=== PATIENT | male | born 1945 | race Caucasian/White ===

== ENCOUNTER 2017-03-14 12:50 | Observation (INO) | payer MEDICARE, BC ==
[~2017-03-14] VITALS: Ht 182.9 cm; Wt 113.2 kg
--- NOTE | ~2017-03-14 | OP ---
PATIENT NAME: ANAMARIA LEVIN MEDICAL RECORD: [id number] :49 LOCATION:D.M2 D.2119 ADMISSION DATE:03/14/17 SURGEON: BRYCE NINA MD DATE OF OPERATION: 03/15/2017 PROCEDURES: Left heart catheterization, LV gram and coronary angiogram. DIESEL ENGINE MECHANIC: Bryce Nina MD. PROCEDURE IN DETAIL: The patient was brought to cardiac catheterization lab in stable condition. Both groins sterilely prepped and draped. After failing an Otilio's test, we decided to go through the right groin. Right groin then had lidocaine infused for topical anesthetic. We then entered into the right common femoral vein in a retrograde fashion using modified Seldinger technique. We then utilized diagnostic catheters to intubate the left main coronary artery, the right coronary artery and the LV cavity for complete left heart catheterization. We then exchanged the diagnostic catheters for interventional guiding catheters where I was able to intubate the left main coronary artery and get distal wire position with the 0.014 inch wire into the distal LAD. I was then able to advance directly with the stents a 2.5 x 22 drug-eluting stent into the mid to distal LAD segment and do direct stenting at 16 atmospheres. We then focused our attention on a more proximal lesion where after IV and intracoronary nitroglycerin was given, we advanced a 3.5 x 18 drug-eluting stent in multiple positions angiographically, verifying position. We deployed to nominal pressures and the procedure was terminated successfully. FINDINGS: 1. Left main has mild calcified plaquing. 2. The LAD is shown to have a proximal 70% stenosis and diffuse atherosclerotic intervening segment stenosis and then at the second sizable diagonal vessel, there was a complex 70% stenosis that was moderately calcified. 3. The circumflex is a dominant vessel by distribution, has diffuse atherosclerotic changes with the most significant stenosis seen in the distal portion calcified 50% stenosis. 4. The RCA is a small nondominant vessel with mild atherosclerotic changes. HEMODYNAMICS: Left ventricular ejection fraction is 65%, end-diastolic pressure was normal. There was no significant mitral regurgitation. There is no gradient across the aortic valve. INTERVENTION: We had segmental moderately complex calcified stenosis in the proximal to mid distal segment, which were successfully stented with drug-eluting stents in the mid segment and in the proximal segment without any sequelae. The patient was asymptomatic through the procedure except for mild chest discomfort after angiographic injection and then also after placement of the stents and that was rectified with little time and topical nitroglycerin. IMPRESSION: Multivessel coronary artery disease that is mild with a more severe segment stenosis in the LAD, both proximal and mid with preserved LV systolic function, it was decided for treatment modalities, we would go forward with angioplasty and stenting, which was successfully performed. Procedure was terminated successfully. The patient has normal left ventricular systolic function. RECOMMENDATIONS: OPERATIVE REPORT [id number] ANAMARIA LEVIN 1. At this point, he will go through dual antiplatelet therapy for at least 1 year in the form of aspirin and Plavix. 2. I would recommend that we maximize the patient's lipid modification primarily utilizing statins as clinically tolerated with the goal for optimal use of less than 70 mg per deciliter. 3. Aggressive secondary risk factor modification form of a DASH diet for control of dietary intake of sodium and trans fats. 4. If clinically tolerated in a patient with coronary artery disease, it is usually recommended to be least on low dose beta-tamia in the form of possible metoprolol. 5. If clinically tolerated, it is generally accepted that the patient should be on a low dose at least CALE inhibitor in the form of possible lisinopril, maybe 2.5 mg p.o. daily. TRANSINT:[id number] Voice Confirmation ID: [id number] DOCUMENT ID: [id number] BRYCE NINA MD CC: [id number] DICTATION DATE: 03/15/17 0953 RETAIL MERCHANDISING MANAGER: 03/15/17 1254 ADM IN [facility] [address] [place] [address]
--- NOTE | ~2017-03-14 | EC ---
PATIENT:ANAMARIA LEVIN DATE OF SERVICE: 03/14/17 SEX: M MEDICAL RECORD: [id number] DATE OF : 49 LOCATION:D.M2 D.211 AGE OF PATIENT: 71 ADMISSION DATE: 03/14/17 REFERRING PHYSICIAN: INTERPRETING PHYSICIAN: JACK NINA MD ECHOCARDIOGRAM REPORT ECHO CHARGES 4 ECHO COMPLETE CLINICAL DIAGNOSIS: CP/DUARTE ECHOCARDIOGRAPHIC MEASUREMENTS (adult normal given) AC root (d.<3.7cm) 3.3 cm LV Septum d (<1.2 cm> 1.8 cm Valve Excursion 1.9 cm LV Septum (systole) 2.1 cm Left Atria (s.<4.0cm> 3.6 cm LVPW d(<1.2cm) 1.6 cm RV (d.<2.3cm) 2.8 cm LVPW (sytole) 2.1 cm LV diastole(<5.6CM) 4.9 cm MV E-F(>70mm/sec) cm LV systole 3.1 cm LVOT Diameter 2.0 cm MV exc.(>10mm) cm Est.ejection fraction (50-75%) % Pericardial Effusion N DOPPLER: LVIT cm/sec A 87.0 cm/sec E 66.0 cm/sec LA cm/sec RVSP 32.0 mmHg LVOT 97.0 cm/sec AOP1/2T m/s Asc. Ao 120 cm/sec RVOT 74.0 cm/sec RA cm/sec PA 131 cm/sec AV Gradient Peak 5.7 mmHg AV Mean 2.8 mmHg AV Area 2.4 cm MV Gradient Peak 3.3 mmHg MV Mean 1.1 mmHg MV Area cm COMMENTS: Business Objects Developer: Rose Marie TAYLOROE Car Bracer: Rianna Nina TAPE# PACS DATE OF SERVICE: 03/15/2017 PROCEDURE: Echocardiogram. FINDINGS: 1. The left ventricle has mild concentric left ventricular hypertrophy and flow characteristics consistent with diastolic dysfunction. The overall ejection fraction is 65%. There is no regional wall motion abnormality. 2. The mitral valve is normal structurally with minimal mitral regurgitation. 3. The tricuspid valve is normal with minimal tricuspid regurgitation. The ECHOCARDIOGRAM REPORT [id number] ANAMARIA LEVIN RVSP is normal. 4. The aortic valve is normal trileaflet structure with no evidence of significant stenosis or regurgitation. 5. The right atrium has normal size, shape and structure. 6. The left atrium has normal size, shape and structure. 7. The pulmonic valve is not well visualized. There is trace pulmonic insufficiency. 8. The pericardium is normal. CONCLUSION: The patient has mild hypertensive heart disease with normal LV systolic function. TRANSINT:[id number] Voice Confirmation ID: [id number] DOCUMENT ID: [id number] JACK NINA MD CC: [id number] DICTATION DATE: 03/15/17 1633 COATER: 03/15/17 1830 ADM IN [facility] [address] [place] [address]
--- NOTE | ~2017-03-14 | HEMODYNAMI ---
PATIENT:ANAMARIA LEVIN MEDICAL RECORD: [id number] : 49 LOCATION:[facility] D.2119 ADMISSION DATE: 03/14/17 Generatedon:03/15/201710:05 Patient name: ANAMARIA LEVIN Patient #: [id number] SSN: : 1945 Date of study: 03/15/2017 Page: Of Hemodynamic Procedure Report Patient Data Patient Demographics Procedure consent was obtained First Name: ANAMARIA Gender: Male Last Name: OLLIE : 1945 Patient #: [id number] Age: 71 year(s) Race: Unknown Additional ID: [id number] Contact details Address: [address] [place] [address] State: [place] City: [place] Zip code: [address] Admission Admission Data Admission Date: 03/14/2017 Admission Time: 15:42 Room #: D.2119 Procedure Procedure Types Cath Procedure Diagnostic Procedure LHC LH w/Coronaries PCI Procedure Coronary Stent Initial Miscellaneous Procedures Moderate Sedation up to 45 minutes Procedure Description Procedure Date Procedure Date: 03/15/2017 Procedure Start Time: 8:59 Procedure End Time: 10:04 Procedure Staff Name Function Bryce Moreno MD Performing Physician Radha Solorzano RN Nurse Jhonny Angel RT Monitor Peggy Persaud RT Scrub Procedure Data Cath Procedure Fluoroscopy Diagnostic fluoroscopy Total fluoroscopy Time: time: 11.3 min 11.3 min Diagnostic fluoroscopy Total fluoroscopy dose: dose: 1824 mGy 1824 mGy Contrast Material Contrast Material Type Amount (ml) Isovue 300 152 Entry Location Entry Primary Successful Side Size Upsize Upsize Entry Closure Succes sful Closure Location (Fr) 1 (Fr) 2 (Fr) Remarks Device Remarks Femoral Right 5 Fr 6 Fr Exoseal artery Short Estimated blood loss: 10 ml Diagnostic catheters Device Type Used For End Catheter Placement Cordis 5Fr JL 4.0 Procedure Catheter (MP) Cordis 5Fr 3DRC Catheter Procedure (MP) Cordis 5Fr Pigtail Procedure Catheter (MP) Procedure Complications No complications Procedure Medications Medication Administration Route Dosage Oxygen NC 2 l/min Lidocaine 2% added to field 20 Heparin Flush Bag added to field 2 bags (1000units/500ml NS) 0.9% NaCl I.V. 100 ml/hr Versed I.V. 2 mg Fentanyl I.V. 50 mcg Angiomax (bolus) I.V. 12 ml Angiomax Drip I.V. drip 27.3 ml/hr (250mg/50ml NS) (Standard) Nitroglycerin IC/IA I.C. 300 mcg Versed I.V. 1 mg Fentanyl I.V. 25 mcg Angiomax Drip 27.3 ml/hr (250mg/50ml NS) (Standard) Fentanyl I.V. 25 mcg unlisted medication 1 Plavix P.O. 300 mg Hemodynamics Rest Heart Rate: 65 (bpm) Pressure Samples Time Site Value (mmHg) Purpose Heart Use Rate(bpm) 9:04 AO 138/84(108) Snapshot 61 9:11 LV 153/-3,19 EDP 66 Gradients Valve Time Site Site Mean SEP/DFP Peak To Heart Use 1 2 (mmHg) (sec/min) Peak Rate (mmHg) (bpm) Aortic 9:12 LV AO 63 Snapshots Pre Cath Intra NCS Post Cath Vital Signs Time Heart Resp SPO2 etCO2 AV1ddpu NIBP (mmHg) Rhythm Pain Sedatio n Rate (ipm) (%) (mmHg) (mmHg) Status Level (bpm) 8:47:41 60 17 97 0 0 164/95(144) NSR 0 (11) 10(A) , No pain 8:52:07 66 17 98 0 0 167/87(134) NSR 0 (11) 10(A) , No pain 8:56:27 66 15 96 0 0 154/95(131) NSR 0 (11) 10(A) , No pain 9:00:49 64 16 95 0 0 147/88(126) NSR 0 (11) 9(A) , No pain 9:05:09 64 15 95 0 0 141/86(112) NSR 0 (11) 9(A) , No pain 9:09:26 65 15 94 0 0 141/86(123) NSR 0 (11) 9(A) , No pain 9:13:42 65 14 93 0 0 132/90(113) NSR 0 (11) 9(A) , No pain 9:17:55 62 16 94 0 0 143/89(105) NSR 0 (11) 9(A) , No pain 9:22:14 63 14 94 0 0 140/84(114) NSR 0 (11) 10(A) , No pain 9:26:32 66 15 94 0 0 133/85(101) NSR 0 (11) 10(A) , No pain 9:30:48 57 15 92 0 0 132/79(97) NSR 0 (11) 10(A) , No pain 9:35:02 61 15 93 0 0 149/89(115) NSR 0 (11) 10(A) , No pain 9:39:22 60 15 93 0 0 146/87(125) NSR 0 (11) 10(A) , No pain 9:43:40 59 18 94 0 0 156/94(125) NSR 0 (11) 10(A) , No pain 9:48:00 60 18 94 0 0 151/97(132) NSR 0 (11) 10(A) , No pain 9:52:18 62 16 95 0 0 168/98(143) NSR 0 (11) 10(A) , No pain 9:56:40 61 19 95 0 0 167/100(139) NSR 0 (11) 10(A) , No pain 10:00:40 0 0 No Cuff NSR 0 (11) 10(A) , No pain 10:04:40 0 0 No Cuff NSR 0 (11) 10(A) , No pain Medications Time Medication Route Dose Verified Delivered Reason N otes Effectiveness by by 8:47:06 Heparin Flush added to 2 Bryce Bryce used for Bag field bags Josh Moreno MD procedure (1000units/500ml NS) 8:47:16 0.9% NaCl I.V. 100 Bryce Buffie Per physician ml/hr Josh Solorzano RN, MD 8:47:52 Oxygen NC 2 Bryce Buffie used for l/min Josh Solorzano RN procedure 8:47:59 Lidocaine 2% added to 20ml Bryce Bryce for local field vial Josh Moreno MD anesthetic 8:57:23 Versed I.V. 2 mg Bryce Buffie for sedation Josh Solorzano RN, MD 8:57:29 Fentanyl I.V. 50 Bryce Buffie for sedation mcg Josh Solorzano RN, MD 9:21:27 Angiomax (bolus) I.V. 12 ml Bryce Buffie for Josh Solorzano RN anticoagulation 9:22:09 Angiomax Drip I.V. drip 27.3 Bryce Buffie for (250mg/50ml NS) ml/hr Josh Solorzano RN anticoagulation (Standard) 9:25:21 Nitroglycerin I.C. 300 Bryce Bryce Per physician IC/IA mcg Josh Moreno MD, MD 9:37:05 Versed I.V. 1 mg Bryce Bryce for sedation Josh Moreno MD, MD 9:37:10 Fentanyl I.V. 25 Bryce Bryce for sedation mcg Josh Moreno MD, MD 9:41:32 Angiomax Drip I.V. 27.3 Bryce Bryce for (250mg/50ml NS) drip-stopped ml/hr Josh Moreno MD anticoagulation (Standard) 9:45:29 Fentanyl I.V. 25 Bryce Buffie for sedation mcg Josh Solorzano RN, MD 9:56:36 Nitroglycerin to chest 1/2 Bryce Buffie for chest pain paste inch Josh Solorzano RN, MD 9:56:44 Plavix P.O. 300 Bryce Buffie for mg Josh Solorzano RN antiplatelet therapy Procedure Log Time Note 8:23:43 Jhonny BOONE(R) sent for patient. Start room use. 8:23:44 Time tracking: Regular hours 8:23:49 Plan of Care:Hemodynamics will remain stable., Cardiac rhythm will remain stable., Comfort level will be maintained., Respiratory function will remain adequate., Patient/ family verbilizes understanding of procedure., Procedure tolerated without complication., Recovers from procedure without complications.. 8:38:29 Patient received from PCU to CCL 1 Alert and oriented. Tansferred to table in Supine position. 8:38:30 Correct patient and procedure confirmed by team. 8:38:30 Warm blankets applied, and jasmina hugger turned on for patient comfort. 8:38:32 ECG and BP/O2 sat monitors applied to patient. 8:38:32 Signed procedure consent form obtained from patient. 8:46:26 Vital chart was started 8:47:06 Heparin Flush Bag (1000units/500ml NS) 2 bags added to field was administered by Bryce Moreno MD; used for procedure; 8:47:16 0.9% NaCl 100 ml/hr I.V. was administered by Radha Solorzano RN; Per physician; 8:47:52 Oxygen 2 l/min NC was administered by Radha Solorzano RN; used for procedure; 8:47:59 Lidocaine 2% 20ml vial added to field was administered by Bryce Moreno MD; for local anesthetic; 8:53:56 Baseline sample Acquired. 8:54:01 Rhythm: sinus rhythm 8:54:02 Full Disclosure recording started 8:54:08 H&P Date Dictated: 03/14/2017 Within 30 days and on chart., H&P Addendum completed by physician on day of procedure. (MUST COMPLETE FOR ALL OUTPATIENTS). 8:54:09 Pre-procedure instructions explained to patient. 8:54:09 Pre-op teaching completed and patient verbalized understanding. 8:54:12 Family in patients room. 8:54:13 Patient NPO since Midnight. 8:54:15 Is the patient allergic to Iodine/contrast media? No. 8:54:17 Is patient on blood thinner?Yes 8:54:20 ACC The patient was administered the following blood thiners within the last 24 hours: ACCPlavix 8:54:21 Patient diabetic? No. 8:54:23 Previous problem with sedation/anesthesia? No ? 8:54:24 Snore? Yes 8:54:26 Sleep apnea? No 8:54:27 Deviated septum? No 8:54:28 Opens mouth fully? Yes 8:54:29 Sticks out tongue? Yes 8:54:30 Airway obstruction? No ? 8:54:32 Dentures? No ? 8:54:35 Pre procedure: right dorsailis pedis pulse 1+ Palpable, but thready & weak; easily obliterated 8:54:38 Modified Otilio's test Ulnar > 7 seconds. 8:54:53 FAILED OTILIO'S 8:54:56 Patient pain scale 0/10 ?. 8:55:02 IV patent on arrival in right hand with 0.9% NaCl at [facility]. 8:55:04 Lab results completed and on chart. 8:55:06 Right groin area was prepped with chlora-prep and draped in sterile fashion 8:55:08 Sharps counted by scrub and verified by R.N. 8:55:08 Alarms reviewed by R. N. 8:55:09 --------ALL STOP TIME OUT------ 8:55:10 Final Timeout: patient, procedure, and site verified with staff and physician. All members of the team are in agreement. 8:55:13 Right groin site verified by team. 8:55:15 Physical assessment completed. ASA score P 2 - A patient with mild systemic disease as per Bryce Moreno MD. 8:55:18 Sedation plan: IV Moderate Sedation Versed, Fentanyl 8:55:37 Zero performed for pressure channel P1 8:56:50 Use device set Femoral Dx 8:56:52 Tegaderm 4 x 4 opened to sterile field. 8:56:53 Acist Hand Control opened to sterile field. 8:56:53 Acist Manifold opened to sterile field. 8:56:54 Acist Syringe opened to sterile field. 8:56:55 Bag Decanter opened to sterile field. 8:56:55 Medline Cath Pack opened to sterile field. 8:56:56 Terumo 5Fr [place] Sheath opened to sterile field. 8:56:56 St Neeraj 260cm J .035 wire opened to sterile field. 8:56:58 Diagnostic Infinity 5Fr Multipack catheter opened to sterile field. 8:57:12 Cook 4Fr Micropuncture Set ([id number]) opened to sterile field. 8:57:23 Versed 2 mg I.V. was administered by Radha Solorzano RN; for sedation; 8:57:29 Fentanyl 50 mcg I.V. was administered by Radha Solorzano RN; for sedation; 8:58:19 IV Extension Set opened to sterile field. 8:58:57 Procedure started. 8:59:01 Local anesthetic to right femoral artery with Lidocaine 2% by Bryce Moreno MD.INITIAL ACCESS ONLY 9:01:47 A 5 Fr sheath was inserted into the Right Femoral artery 9:03:41 A Cordis 5Fr JL 4.0 Catheter (MP) was advanced over the wire and used for Procedure. 9:04:25 LCA angiography performed. 9:07:40 Catheter exchanged over wire. 9:07:45 A Cordis 5Fr 3DRC Catheter (MP) was advanced over the wire and used for Procedure. 9:08:42 RCA angiography performed. 9:09:06 Catheter exchanged over wire. 9:10:27 A Cordis 5Fr Pigtail Catheter (MP) was advanced over the wire and used for Procedure. 9:11:40 LV angiography performed. 9:11:44 LV gram done using SHAH 9:12:53 EF : 60 % 9:12:55 LV hemodynamics recorded. 9:12:59 Injector settings: Ml/sec: 12, Volume: 8, 9:13:02 Catheter removed. 9:15:07 Presentigo BasixCompak Inflation Kit opened to sterile field. 9:15:09 TerumAeryon Labs 6Fr [place]well Sheath opened to sterile field. 9:15:10 Copilot Bleedback Control Valve opened to sterile field. 9:15:10 Resistentia PharmaceuticalsW [place] 2 J-tip 300cm 0.014 guide wir opened to sterile field. 9:15:12 TapImmune Launcher 6Fr EBU 4.5 guide catheter opened to sterile field. 9:15:47 Sheath upsized to a 6 Fr Short. 9:16:13 Study PCI Site: [place] mLAD has 70% stenosis. 9:17:36 ACC Pre-intervention EUN Flow is 3. 9:17:46 6 Fr EBU 4.5 guide catheter was inserted over the wire 9:21:27 Angiomax (bolus) 12 ml I.V. was administered by Radha Solorzano RN; for anticoagulation; 9:21:36 BMW wire advanced. 9:22:09 Angiomax Drip (250mg/50ml NS) (Standard) 27.3 ml/hr I.V. drip was administered by Radha Solorzano RN; for anticoagulation; 9:23:52 Wire advanced across lesion. 9:25:21 Nitroglycerin IC/IA 300 mcg I.C. was administered by Bryce Moreno MD; Per physician; 9:31:29 Inflation Number: 1 A [place] OTW 2.5 x 22 stent was prepped and advanced across the Mid LAD. The stent was deployed at 16 [place] for 0:10 (min:sec). 9:33:15 Stent catheter was removed intact over wire. 9:37:05 Versed 1 mg I.V. was administered by Bryce Moreno MD; for sedation; 9:37:10 Fentanyl 25 mcg I.V. was administered by Bryce Moreno MD; for sedation; 9:38:22 Inflation Number: 1 A [place] OTW 3.5 x 18 stent was prepped and advanced across the Prox LAD. The stent was deployed at 12 [place] for 0:10 (min:sec). 9:39:20 Stent catheter was removed intact over wire. 9:41:32 Angiomax Drip (250mg/50ml NS) (Standard) 27.3 ml/hr I.V. drip-stopped was administered by Bryce Moreno MD; for anticoagulation; 9:41:40 Wire removed. 9:42:08 Guide catheter removed. 9:42:11 ACC Post-intervention EUN Flow is 3. 9:42:46 Cordis 6Fr Exoseal opened to sterile field. 9:43:01 Sheath removed intact; hemostasis achieved with Exoseal to the Right Femoral artery. 9:43:05 Procedure ended.(Physican Out) 9:43:29 Fluoroscopy time 11.30 minutes. 9:43:34 Flurop Dose total: 1824 9:43:34 Fluoroscopy dose: 1824 mGy 9:43:38 Contrast amount:Isovue 300 152ml. 9:43:40 Sharps counted by scrub and verified by R.N. 9:43:43 Insertion/operative site no bleeding no hematoma. 9:43:45 Post-op/insertion site Right Femoral artery dressed using a 4 x 4 and Tegaderm. 9:43:47 Post Procedure Pulses reassessed and unchanged 9:43:50 Post-procedure physical assessment completed. ASA score P 2 - A patient with mild systemic disease as per Bryce Moreno MD. 9:44:56 Post procedure rhythm: unchanged. 9:44:58 Estimated blood loss: 10 ml 9:45:00 Post procedure instruction explained to patient.Patient verbalizes understanding. 9:45:01 Patient needs reinforcement of post procedure teaching. 9:45:11 Procedure type changed to Cath procedure, Diagnostic procedure, LHC, LHC w/Coronaries, PCI procedure, Coronary Stent Initial, Miscellaneous Procedures, Moderate Sedation up to 45 minutes 9:45:14 Procedure Complication : No complications 9:45:29 Fentanyl 25 mcg I.V. was administered by Radha Solorzano RN; for sedation; 9:47:24 Procedure and supply charges have been captured, reviewed, submitted and are correct. 9:56:36 Nitroglycerin paste 1/2 inch to chest was administered by Radha Solorzano RN; for chest pain; 9:56:44 Plavix 300 mg P.O. was administered by Radha Solorzano RN; for antiplatelet therapy; 10:04:25 Vital chart was stopped 10:04:26 See physician's report for complete and final results. 10:04:29 Report given to PCU. 10:04:36 Patient transfered to PCU with Bed. 10:04:38 Procedure ended. 10:04:38 Full Disclosure recording stopped 10:04:53 End room use (Document Last) Intervention Summary Intervention Notes Time ActionType Lesion and Equipment Action# Pressure Duration Attributes Used 9:31:29 Place stent Mid LAD [place] OTW 1 16 00:10 2.5 x 22 stent 9:38:22 Place stent Prox LAD [place] OTW 1 12 00:10 3.5 x 18 stent Device Usage Item Name Manufacture Quantity Catalog Hospital Part Current Mini mal Lot# / Number Charge Number Stock Stock Serial# Code Tegaderm 4 x 3M 1 1626W [id number] 779756 177584 5 4 Acist Hand Acist 1 15502 737817 637947 228924 5 Control Medical Systems Inc Acist Acist 1 96751 471385 079206 209993 5 Manifold Medical Systems Inc Acist Syringe Acist 1 47820 083264 514747 011103 20 Medical Systems Inc Bag Decanter Microtek 1 2002S 260791 38347 476406 5 Medical Inc. Medline Cath Cardinal 1 [id number] 328344 47509 902775 5 Pack Health Terumo 5Fr Terumo 1 [id number] 487632 440188 349770 [address] Neeraj 1 304166 561318 690226 667664 30 J .035 wire Diagnostic Cardinal 1 [id number] 831494 45772 418033 30 Infinity 5Fr Health Multipack catheter Cook 4Fr [employer] 1 [id number] 745494 359925 994503 5 Micropuncture Set ([id number]) IV Extension Hospira 1 34453-74 1928588 43098 664639 5 Set Cordis 5Fr JL Cardinal 1 202148 5 4.0 Catheter Health (MP) Cordis 5Fr Cardinal 1 179260 5 3DRC Catheter Health (MP) Cordis 5Fr Cardinal 1 938140 5 Pigtail Health Catheter (MP) [facility] 1 [id number] 820856 490485 703775 15 BasixCompak Medical Inflation Kit Terumo 6Fr Terumo 1 [id number] 012248 128477 612965 40 Norwell Sheath Copilot [place] 1 1647368 715015 747811 392621 5 Bleedback Vascular Control Valve Hooper BMW Hooper 1 [id number] 715973 469794 317858 5 [place] 2 Vascular J-tip 300cm 0.014 guide wir Medtronic Medtronic 1 [id number] 022533 97421 267199 0 Launcher 6Fr EBU 4.5 guide catheter [place] OTW 2.5 Medtronic 1 [id number] 230814 23903 847369 5 [id number] x 22 stent [place] OTW 3.5 Medtronic 1 [id number] 543890 8686641 164060 5 [id number] x 18 stent Cordis 6Fr Cardinal 1 [id number] 083716 350578 187962 10 [facility] Ecorithm Signature Audit [place] Stage Time Signature Unsigned Intra-Procedure 03/15/2017 Jhonny Angel 10:05:08 AM RT(R) Signatures Monitor : Jhonny Angel RT Signature : Date : Time : [address] [place] [address]
[2017-03-14 13:32] LABS: BASOPHILS 0.9 % (0-2); EOSINOPHILS 3.4 % (0-7); HEMATOCRIT 44.8 % (42.0-54.0); HEMOGLOBIN 15.8 g/dL (13.5-17.5); IMMATURE GRANULOCYTES 0.2 % (0-5); LYMPHOCYTES 39.3 % (15-50); MCH 30.3 pg (26.0-34.0); MCHC 35.3 g/dL (31.0-37.0); MEAN PLATELET VOLUME 10.6 fL (7.4-10.4); MONOCYTES 9.8 % (2-11); NEUTROPHILS 46.4 % (40-80); PLATELET COUNT 186 10x3/uL (130-400); RBC 5.21 10x6/uL (4.20-6.10); RDW 12.7 % (11.5-14.5); WBC 4.4 10x3/uL (4.8-10.8)
[2017-03-14 13:46] LABS: ALBUMIN 3.6 g/dL (3.4-5.0); ALKALINE PHOSPHATASE 60 U/L (46-116); ALT (SGPT) 45 U/L (10-68); BILIRUBIN - TOTAL 0.33 mg/dL (0.2-1.3); CALC OSMOLALITY 277 mosm/kg (275-300); CALCIUM 8.1 mg/dL (8.5-10.1); CARBON DIOXIDE 24.4 mmol/L (21.0-32.0); CHLORIDE - SERUM 105 mmol/L (98-107); CREATININE - SERUM 0.8 mg/dL (0.6-1.3); GLUCOSE 101 mg/dL (74-106); POTASSIUM - SERUM 3.9 mmol/L (3.5-5.1); PROTEIN - SERUM 7.4 g/dL (6.4-8.2); SODIUM 138 mmol/L (136-145); UREA NITROGEN 17 mg/dL (7-18); eGFR NON AFRICAN AMERICAN > 90 mL/min (90-120)
[2017-03-14 14:01] LABS: CHOL - HDL RATIO 6.6 ratio (2.3-4.9); CHOLESTEROL, TOTAL 185 mg/dL (0-200); CKMB 1.8 U/L (0.0-3.6); CREATINE KINASE 249 UL (21-232); HDL CHOLESTEROL 28 mg/dL (32-96); LDL CHOLESTEROL 120 mg/dL (0-100); LDL-HDL RATIO 4.3 ratio (1.5-3.5); TRIGLYCERIDE 187 mg/dL (30-200); TROPONIN-I < 0.017 ng/mL (0.000-0.060)
[2017-03-14 17:33] VITALS: BP 134/68; Ht 182.9 cm; Wt 113.2 kg
--- NOTE | 2017-03-14 17:44 | NUR ---
RECIVED FROM ER PER WC TO ROOM 2119. RN FOR ADMIT ASSESSMENT. AT SIDE.
[2017-03-14 20:00] VITALS: BP 150/104
[2017-03-14 20:16] VITALS: BP 133/79
[2017-03-15 03:46] LABS: BASOPHILS 0.8 % (0-2); EOSINOPHILS 3.7 % (0-7); HEMATOCRIT 44.2 % (42.0-54.0); HEMOGLOBIN 15.4 g/dL (13.5-17.5); IMMATURE GRANULOCYTES 0.2 % (0-5); LYMPHOCYTES 42.3 % (15-50); MCH 30.3 pg (26.0-34.0); MCHC 34.8 g/dL (31.0-37.0); MONOCYTES 9.6 % (2-11); NEUTROPHILS 43.4 % (40-80); PLATELET COUNT 185 10x3/uL (130-400); RBC 5.08 10x6/uL (4.20-6.10); RDW 12.7 % (11.5-14.5); WBC 4.9 10x3/uL (4.8-10.8)
[2017-03-15 04:00] VITALS: BP 135/73
[2017-03-15 04:10] LABS: CALC OSMOLALITY 277 mosm/kg (275-300); CARBON DIOXIDE 29.5 mmol/L (21.0-32.0); CHLORIDE - SERUM 105 mmol/L (98-107); GLUCOSE 104 mg/dL (74-106); POTASSIUM - SERUM 3.9 mmol/L (3.5-5.1); SODIUM 138 mmol/L (136-145); UREA NITROGEN 17 mg/dL (7-18)
[2017-03-15 04:12] LABS: CREATININE - SERUM 1.1 mg/dL (0.6-1.3); TROPONIN-I < 0.017 ng/mL (0.000-0.060); eGFR NON AFRICAN AMERICAN 70 mL/min (90-120)
[2017-03-15 04:55] VITALS: BP 129/82
[2017-03-15 08:00] VITALS: BP 150/92
--- NOTE | 2017-03-15 08:33 | NUR ---
PRE-OPS GIVEN. LEAVING FOR INTERACTIVE MEDIA DIRECTOR BY BED.
--- NOTE | 2017-03-15 10:26 | NUR ---
BACK FROM DIGITAL MARKETING CONSULTANT. VS WNL. RIGHT GROIN STABLE WITHOUT BLEEDING OR HEMATOMA NOTED. WILL MONITOR.
[2017-03-15 11:46] VITALS: BP 164/97
--- NOTE | 2017-03-15 13:50 | NUR ---
BED REST UP. RIGHT GROIN STABLE.
[2017-03-15 15:23] VITALS: BP 107/70
--- NOTE | 2017-03-15 19:59 | NUR ---
RESUMED CARE OF PT, LYING IN BED RESPIRATIONS EVEN AND UNLABORED ON 2LPM VIA NC. 62 SR ON TELEMETRY. RIGHT HAND SALINE LOCKED. NO NEEDS AT THIS TIME, WILL CONTINUE TO MONITOR. SEE NURSE ASSESSMENT.
[2017-03-15 20:02] VITALS: BP 121/79
[2017-03-16 00:35] VITALS: BP 108/65
[2017-03-16 05:38] VITALS: BP 156/84
[2017-03-16 05:48] LABS: BASOPHILS 0.3 % (0-2); EOSINOPHILS 1.4 % (0-7); HEMATOCRIT 44.6 % (42.0-54.0); HEMOGLOBIN 15.4 g/dL (13.5-17.5); IMMATURE GRANULOCYTES 0.3 % (0-5); LYMPHOCYTES 20.8 % (15-50); MCH 30.1 pg (26.0-34.0); MCHC 34.5 g/dL (31.0-37.0); MCV 87.1 fL (80.0-100.0); MEAN PLATELET VOLUME 10.9 fL (7.4-10.4); NEUTROPHILS 66.2 % (40-80); PLATELET COUNT 191 10x3/uL (130-400); RBC 5.12 10x6/uL (4.20-6.10); RDW 12.8 % (11.5-14.5)
[2017-03-16 05:56] LABS: WBC 7.7 10x3/uL (4.8-10.8)
[2017-03-16 06:10] LABS: CALC OSMOLALITY 276 mosm/kg (275-300); CALCIUM 7.8 mg/dL (8.5-10.1); CARBON DIOXIDE 25.8 mmol/L (21.0-32.0); CHLORIDE - SERUM 103 mmol/L (98-107); GLUCOSE 117 mg/dL (74-106); POTASSIUM - SERUM 3.7 mmol/L (3.5-5.1); SODIUM 137 mmol/L (136-145); UREA NITROGEN 17 mg/dL (7-18); eGFR NON AFRICAN AMERICAN 79 mL/min (90-120)
--- NOTE | 2017-03-16 07:30 | NUR ---
RECEIVED PT IN BED AAOX4 PLEASANT MOOD RESP UNLABORED DENIES ANY NEEDS OR DISCOMFORT AT THIS TIME NAD NOTED WILL CONTINUE TO MONITOR
[2017-03-16 08:23] VITALS: BP 115/69
[2017-03-16] MEDS ORDERED: LIPITOR20 MG PO ×2 (11:02→11:48)
[2017-03-16] MEDS ORDERED: ASPIRIN325 MG PO (11:02)
[2017-03-16] MEDS ORDERED: LISINOPRIL5 MG PO (11:02)
[2017-03-16] MEDS ORDERED: LOPRESSOR25 MG PO (11:02)
[2017-03-16 11:36] VITALS: BP 130/76
[2017-03-16] MEDS ORDERED: PLAVIX75 MG PO (11:48)
--- NOTE | 2017-03-16 14:25 | NUR ---
REVIEWED DISCHARGE INSTRUCTIONS WITH PT AND BOTH STATE UNDERSTANDING COPY GIVEN DCD SALINE LOCK TO RT HAND WITH 18 GA IV CATHETER INTACT SITE FREE OF REDNESS OR EDEMA DISCHARGED PT HOME LEFT UNIT VIA W/C IN STABLE CONDITION WITH ALL PERSONAL BELONGINGS
== END 2017-03-16 14:25 | disposition home or self-care (01) ==
LOC: D.ER 12:50 → D.M2 15:42 → OBSVTIME 15:42 → D.M2 15:42
PROVIDERS: Emergency Medicine; ADMIT Emergency Medicine
DX: I25.119 Atherosclerotic heart disease of native coronary artery with unspecified angina pectoris (principal); Z87.891 Personal history of nicotine dependence
CPT/HCPCS: 93458; C9600

== ENCOUNTER → 2018-02-05 17:46 | Outpatient (CLI) | payer MEDICARE, BC ==
[2017-03-14 17:33] VITALS: BMI 34.2
[~2018-02-05 17:46] MED LIST: ASPIRIN325 MG PO; BAYER CHEWABLE81 MG PO; LIPITOR20 MG PO; LISINOPRIL5 MG PO; LOPRESSOR25 MG PO; PLAVIX75 MG PO
[2018-02-05 18:21] LABS: BASOPHILS 0.7 % (0-2); EOSINOPHILS 2.9 % (0-7); HEMATOCRIT 44.5 % (42.0-54.0); HEMOGLOBIN 15.3 g/dL (13.5-17.5); IMMATURE GRANULOCYTES 0.2 % (0-5); MCH 30.2 pg (26.0-34.0); MCHC 34.4 g/dL (31.0-37.0); MCV 87.9 fL (80.0-100.0); MEAN PLATELET VOLUME 11.9 fL (7.4-10.4); MONOCYTES 10.4 % (2-11); NEUTROPHILS 53.8 % (40-80); PLATELET COUNT 189 10x3/uL (130-400); RBC 5.06 10x6/uL (4.20-6.10); RDW 12.7 % (11.5-14.5); WBC 5.8 10x3/uL (4.8-10.8)
== END | disposition home or self-care (01) ==
LOC: D.LABREF 17:46
PROVIDERS: Internal Medicine Cardiovascular Disease
DX: I10 Essential (primary) hypertension (principal)

== ENCOUNTER → 2018-02-08 12:45 | Outpatient (CLI) | payer MEDICARE, BC ==
[2017-03-14 17:33] VITALS: BMI 34.2
--- NOTE | ~2018-02-08 | EC ---
PATIENT:ANAMARIA LEVIN DATE OF SERVICE: 02/08/18 SEX: M MEDICAL RECORD: [id number] DATE OF : 49 LOCATION:D.[facility] AGE OF PATIENT: 72 ADMISSION DATE: 02/08/18 REFERRING PHYSICIAN: INTERPRETING PHYSICIAN: JACK NINA MD ECHOCARDIOGRAM REPORT ECHO CHARGES 4 ECHO COMPLETE Date: 02/08 CLINICAL DIAGNOSIS: CAD, CP, HTN, SYNCOPE ECHOCARDIOGRAPHIC MEASUREMENTS (adult normal given) AC root (d.<3.7cm) 3.8 cm LV Septum d (<1.2 cm> 1.3 cm Valve Excursion 1.3 cm LV Septum (systole) 1.1 cm Left Atria (s.<4.0cm> 2.8 cm LVPW d(<1.2cm) 0.7 cm RV (d.<2.3cm) 3.8 cm LVPW (sytole) 0.9 cm LV diastole(<5.6CM) 4.9 cm MV E-F(>70mm/sec) cm LV systole 3.5 cm LVOT Diameter 2.3 cm MV exc.(>10mm) cm Est.ejection fraction (50-75%) % DOPPLER: LVIT cm/sec A 73 cm/sec E 59 cm/sec LA cm/sec RVSP 14.3 mmHg LVOT 106 cm/sec AOP1/2T m/s Asc. Ao 116 cm/sec RVOT 59 cm/sec RA cm/sec PA 69 cm/sec AV Gradient Peak 5.41 mmHg AV Mean 2.77 mmHg AV Area 4.2 cm MV Gradient Peak 3.49 mmHg MV Mean 1.47 mmHg MV Area cm COMMENTS: Route Relief Driver: Dog Track Kennel Manager: Rianna Nina TAPE# PACS Pericardial Effusion N DATE OF SERVICE: PROCEDURE: Transthoracic echocardiogram. FINDINGS: 1. Ejection fraction is 55% to 60%. The patient has evidence of mild diastolic dysfunction with mild left ventricular hypertrophy. 2. The left atrium is normal. 3. The aortic valve is normal. 4. The mitral valve has mild mitral regurgitation. ECHOCARDIOGRAM REPORT [id number] ANAMARIA LEVIN 5. Tricuspid valve has trace tricuspid regurgitation. 6. The right ventricle is mild to moderately dilated. 7. The right atrium is mildly dilated. CONCLUSION: The patient has normal left ventricular systolic function with evidence of hypertensive heart disease. TRANSINT:[id number] Voice Confirmation ID: [id number] DOCUMENT ID: [id number] JACK NINA MD at 0737 CC: [id number] DICTATION DATE: 02/14/18928 DIRECTOR OF SLEEP: 02/14/18 1125 DEP CLI 02/08/18 [place] [id number]
== END | disposition home or self-care (01) ==
LOC: D.ECHO 12:45
DX: I25.10 Atherosclerotic heart disease of native coronary artery without angina pectoris (principal); R07.9 Chest pain, unspecified; I10 Essential (primary) hypertension; E78.5 Hyperlipidemia, unspecified; R42 Dizziness and giddiness; R55 Syncope and collapse

== ENCOUNTER → 2018-02-14 06:34 | Outpatient (CLI) | payer MEDICARE, BC ==
[~2018-02-14] VITALS: Ht 182.9 cm; Wt 104.5 kg
--- NOTE | ~2018-02-14 | HEMODYNAMI ---
PATIENT:ANAMARIA LEVIN MEDICAL RECORD: [id number] : 49 LOCATION:D.[facility] ADMISSION DATE: 02/14/18 Generatedon:02/14/20188:59 Patient name: ANAMARIA LEVIN Patient #: [id number] SSN: : 1945 Date of study: 02/14/2018 Page: Of Hemodynamic Procedure Report Patient Data Patient Demographics Procedure consent was obtained First Name: ANAMARIA Gender: Male Last Name: OLLIE : 1945 Middle Initial: G Age: 72 year(s) Patient #: [id number] Race: Unknown Additional ID: [id number] Contact details [address]: [address] [place] [address] State: [place] City: [place] Zip code: [address] Admission Admission Data Admission Date: 02/14/2018 Admission Time: 6:34 Arrival Date: 02/14/2018 Arrival Time: 6:34 Admit Source: Other Insurance Payor: Medicare Height (in.): 72 BSA: 2.29 (m2) Height (cm.): 182.88 BMI: 32.28 (kg/m2) Weight (lbs.): 238 Weight (kg.): 107.95 Procedure Procedure Types Cath Procedure Diagnostic Procedure [facility] w/Coronaries Sedation Charges Moderate Sedation up to 15 minutes Procedure Description Procedure Date Procedure Date: 02/14/2018 Procedure Start Time: 8:37 Procedure End Time: 8:57 Procedure Staff Name Function Bryce Moreno MD Performing Physician Nani Pinto RT Monitor Yumi James RT Scrub Radha Solorzano RN Nurse Procedure Data Cath Procedure Fluoroscopy Diagnostic fluoroscopy Total fluoroscopy Time: 1.7 time: 1.7 min min Diagnostic fluoroscopy Total fluoroscopy dose: 427 dose: 427 mGy mGy Contrast Material Contrast Material Type Amount (ml) Isovue 300 35 Entry Location Entry Primary Successful Side Size Upsize Upsize Entry Closure Succes sful Closure Location (Fr) 1 (Fr) 2 (Fr) Remarks Device Remarks Femoral Right 5 Fr Exoseal artery Estimated blood loss: 5 ml Diagnostic catheters Device Type Used For End Catheter Placement MULTIPACK JL 4.0 5Fr Left Coronary catheter Angiography MULTIPACK 3DRC 5Fr Right Coronary catheter Angiography MULTIPACK Pigtail 5 Fr LV Angiography catheter Procedure Complications No complications Procedure Medications Medication Administration Route Dosage Oxygen NC 2 l/min Lidocaine 2% added to field 20 Heparin Flush Bag added to field 2 bags (1000units/500ml NS) 0.9% NaCl I.V. 100 ml/hr Versed I.V. 1 mg Fentanyl I.V. 50 mcg Versed I.V. 1 mg Radial Cocktail added to field 1 syringe (Verapomil 2mg/Nitro 400mcg/Heparin 1500units) Hemodynamics Rest BSA: 2.29 (m2) O2 Consumption: Estimated: 251.25 (ml/min) O2 Consumption indexed : Estimated:109.72 (ml/min/m) Heart Rate: 54 (bpm) Pressure Samples Time Site Value (mmHg) Purpose Heart Use Rate(bpm) 8:54 LV 132/-5,16 EDP 60 Gradients Valve Time Site Site Mean SEP/DFP Peak To Heart Use 1 2 (mmHg) (sec/min) Peak Rate (mmHg) (bpm) Aortic 8:54 LV AO 60 Snapshots Pre Cath Intra NCS Post Cath Vital Signs Time Heart Resp SPO2 etCO2 NIBP (mmHg) Rhythm Pain Sedation Rate (ipm) (%) (mmHg) Status Level (bpm) 8:15:43 53 18 99 26.2 143/82(109) NSR 0 (11) 10(A) , No pain 8:19:32 53 17 98 32.2 134/81(112) NSR 0 (11) 10(A) , No pain 8:23:57 53 18 98 32.9 135/81(105) NSR 0 (11) 10(A) , No pain 8:28:11 58 14 98 30 133/87(108) NSR 0 (11) 10(A) , No pain 8:31:58 57 14 94 30.7 135/84(106) NSR 0 (11) 10(A) , No pain 8:35:47 56 13 95 10.4 130/82(104) NSR 0 (11) 9(A) , No pain 8:39:39 59 13 95 20.7 118/79(95) NSR 0 (11) 9(A) , No pain 8:43:28 57 14 97 18.7 118/76(94) NSR 0 (11) 9(A) , No pain 8:47:16 57 14 97 20.9 119/79(99) NSR 0 (11) 9(A) , No pain 8:51:30 58 14 96 21.4 131/78(99) NSR 0 (11) 10(A) , No pain 8:55:19 60 13 97 20.7 132/78(100) NSR 0 (11) 10(A) , No pain Medications Time Medication Route Dose Verified Delivered Reason Notes Ef fectiveness by by 8:14:06 Oxygen NC 2 l/min Bryce Buffie used for Josh Solorzano RN procedure 8:14:16 Lidocaine 2% added 20ml Bryce Bryce for local to vial Josh Moreno MD anesthetic field 8:14:22 Heparin Flush added 2 bags Bryce Bryce used for Bag to Josh Moreno MD procedure (1000units/500ml field CARRILLO NS) 8:14:32 0.9% NaCl I.V. 100 Bryce Buffie Per ml/hr Josh Solorzano RN physician 8:16:27 Radial Cocktail added 1 Bryce Buffie used for wasted, (Verapomil to syringe Josh Solorzano RN procedure not 2mg/Nitro field CARRILLO used 400mcg/Heparin 1500units) 8:29:15 Versed I.V. 1 mg Bryce Buffie for Josh Solorzano RN sedation 8:29:21 Fentanyl I.V. 50 mcg Bryce Buffie for Josh Solorzano RN sedation 8:35:03 Versed I.V. 1 mg Bryce Buffie for Josh Solorzano RN sedation Procedure Log Time Note 8:00:41 Nani Pinto RT(R) sent for patient. Start room use. 8:00:42 Time tracking: Regular hours (M-F 7:00 - 5:00) 8:00:47 Plan of Care:Hemodynamics will remain stable., Cardiac rhythm will remain stable., Comfort level will be maintained., Respiratory function will remain adequate., Patient/ family verbilizes understanding of procedure., Procedure tolerated without complication., Recovers from procedure without complications.. 8:04:19 Patient received from Pre/Post Procedure Room to [facility] 2 Alert and oriented. Tansferred to table in Supine position. 8:04:20 Warm blankets applied, and jasmina hugger turned on for patient comfort. 8:04:21 Correct patient and procedure confirmed by team. 8:04:22 Signed procedure consent form obtained from patient. 8:04:23 ECG and BP/O2 sat monitors applied to patient. 8:14:06 Oxygen 2 l/min NC was administered by Radha Solorzano RN; used for procedure; 8:14:16 Lidocaine 2% 20ml vial added to field was administered by Bryce Moreno MD; for local anesthetic; 8:14:22 Heparin Flush Bag (1000units/500ml NS) 2 bags added to field was administered by Bryce Moreno MD; used for procedure; 8:14:32 0.9% NaCl 100 ml/hr I.V. was administered by Radha Solorzano RN; Per physician; 8:14:35 Vital chart was started 8:16:27 Radial Cocktail (Verapomil 2mg/Nitro 400mcg/Heparin 1500units) 1 syringe added to field was administered by Radha Solorzano RN; used for procedure; wasted, not used 8:18:09 Baseline sample Acquired. 8:18:14 Rhythm: sinus rhythm 8:18:16 Full Disclosure recording started 8:18:21 H&P Date Dictated: 02/14/2018 Within 30 days and on chart., H&P Addendum completed by physician on day of procedure. (MUST COMPLETE FOR ALL OUTPATIENTS). 8:18:22 Pre-procedure instructions explained to patient. 8:18:22 Pre-op teaching completed and patient verbalized understanding. 8:18:27 Family in patients room. 8:18:29 Patient NPO since Midnight. 8:18:32 Is the patient allergic to Iodine/contrast media? No. 8:18:33 Was the patient premedicated? No 8:18:34 Is patient on blood thinner?Yes 8:18:36 ACC The patient was administered the following blood thiners within the last 24 hours: ACCPlavix 8:18:38 Patient diabetic? No. 8:18:40 Previous problem with sedation/anesthesia? No ? 8:18:42 Snore? Yes 8:18:44 Sleep apnea? No 8:18:45 Deviated septum? No 8:18:46 Opens mouth fully? Yes 8:18:46 Sticks out tongue? Yes 8:18:48 Airway obstruction? No ? 8:18:51 Dentures? No ? 8:18:54 Pre procedure: right dorsailis pedis pulse 2+ Normal; easily identifiable; not easily obliterated 8:18:56 Pre procedure: left dorsailis pedis pulse 2+ Normal; easily identifiable; not easily obliterated 8:18:58 Patient pain scale 0/10 ?. 8:19:04 IV patent on arrival in left forearm with 0.9% NaCl at [facility]. 8:19:06 Lab results completed and on chart. 8:19:10 Right groin area was prepped with chlora-prep and draped in sterile fashion 8:19:11 Alarms reviewed by R. N. 8:19:12 Sharps counted by scrub and verified by R.N. 8:19:15 Physician arrived 8:19:15 --------ALL STOP TIME OUT------ 8:19:16 Final Timeout: patient, procedure, and site verified with staff and physician. All members of the team are in agreement. 8:19:18 Right groin site verified by team. 8:19:22 Physical assessment completed. ASA score P 2 - A patient with mild systemic disease as per Bryce Moreno MD. 8:19:25 Sedation plan: IV Moderate Sedation Medication:Versed, Fentanyl 8:19:30 Use device set Femoral Dx 8:19:31 ACIST Syringe (12153) opened to sterile field. 8:19:32 Bag Decanter () opened to sterile field. 8:19:32 Medline Cath Pack ([id number]) opened to sterile field. 8:19:33 DIAGNOSTIC WIRE .035 260cm J wire (622107) opened to sterile field. 8:19:34 ACIST Hand Control (06913) opened to sterile field. 8:19:34 ACIST Manifold (77153) opened to sterile field. 8:19:35 DIAGNOSTIC Multipack 5Fr catheter set ([id number]) opened to sterile field. 8:19:35 Tegaderm 4 x 4 (1626W) opened to sterile field. 8:19:36 SHEATH Prelude 5Fr 0.035 (KDW-2O-45-035) opened to sterile field. 8:26:21 Zero performed for pressure channel P1 8:28:13 Admit Source: Other 8:28:15 Arrival Date: 02/14/2018 6:34:00 AM 8:28:22 Insurance Payor : Medicare 8:29:01 Patient Height : 72 inches 8:29:13 Patient Weight : 238 lbs 8:29:15 Versed 1 mg I.V. was administered by Radha Solorzano RN; for sedation; 8:29:21 Fentanyl 50 mcg I.V. was administered by Radha Solorzano RN; for sedation; 8:35:03 Versed 1 mg I.V. was administered by Radha Solorzano RN; for sedation; 8:36:05 Procedure started. 8:37:07 Local anesthetic to right radial artery with Lidocaine 2% by Bryce Moreno MD.INITIAL ACCESS ONLY 8:45:59 Local anesthetic to right femoral artery with Lidocaine 2% by Bryce Moreno MD.ADDITIONAL ACCESS 8:46:32 MICROPUNCTURE 4FR Cook (L14094) opened to sterile field. 8:46:40 Access obtained with 4Fr micropunture. 8:46:52 A 5 Fr sheath was inserted into the Right Femoral artery 8:47:31 A MULTIPACK JL 4.0 5Fr catheter was advanced over the wire and used for Left Coronary Angiography. 8:49:21 LCA angiography performed. 8:49:25 Injector settings: Ml/sec: 3, Volume: 6, 8:50:49 Catheter removed. 8:50:57 A MULTIPACK 3DRC 5Fr catheter was advanced over the wire and used for Right Coronary Angiography. 8:52:49 RCA angiography performed. 8:52:52 Injector settings: Ml/sec: 3, Volume: 6, 8:53:50 Catheter removed. 8:53:54 A MULTIPACK Pigtail 5 Fr catheter was advanced over the wire and used for LV Angiography. 8:54:33 LV hemodynamics recorded. 8:54:34 LV gram done using SHAH 8:54:38 Injector settings: Ml/sec: 12, Volume: 8, 8:55:01 EF : 60 % 8:55:05 Catheter removed. 8:55:07 EXOSEAL 5Fr (EX500) opened to sterile field. 8:55:17 Sheath removed intact; hemostasis achieved with Exoseal to the Right Femoral artery. 8:55:19 Procedure ended.(Physican Out) 8:56:32 Fluoroscopy time 01.70 minutes. 8:56:37 Flurop Dose total: 427 8:56:37 Fluoroscopy dose: 427 mGy 8:56:51 Contrast amount:Isovue 300 35ml. 8:56:52 Sharps counted by scrub and verified by R.N. 8:57:18 Insertion/operative site no bleeding no hematoma. 8:57:24 Post-op/insertion site Right Femoral artery dressed using a 4 x 4 and Tegaderm. 8:57:27 Post right femoral artery:stable 8:57:29 Post Procedure Pulses reassessed and unchanged 8:57:31 Post procedure rhythm: unchanged. 8:57:34 Estimated blood loss: 5 ml 8:57:35 Post procedure instruction explained to patient.Patient verbalizes understanding. 8:57:35 Patient needs reinforcement of post procedure teaching. 8:57:44 Procedure type changed to Cath procedure, Diagnostic procedure, LHC, LHC w/Coronaries, Sedation Charges, Moderate Sedation up to 15 minutes 8:57:45 Procedure and supply charges have been captured, reviewed, submitted and are correct. 8:57:50 Procedure Complication : No complications 8:57:52 Vital chart was stopped 8:57:52 See physician's report for complete and final results. 8:57:54 Report given to Pre/Post Procedure Room. 8:57:56 Patient transfered to Pre/Post Procedure Room with Stretcher. 8:57:59 Procedure ended. 8:57:59 Full Disclosure recording stopped 8:58:03 End room use (Document Last) Device Usage Item Name Manufacture Quantity Catalog Number Hospital Part Current M inimal Lot# / Charge Number Stock Stock Serial# Code ACIST Syringe Acist 1 84642 976354 483881 245655 2 0 (88382) [employer] Bag Decanter Microtek 1 2001S 695480 92136 368850 5 () Medical Inc. Medline Cath Cardinal 1 [id number] 155883 79816 201774 5 Pack [facility] ([id number]) DIAGNOSTIC WIRE [facility] Neeraj 1 [id number] 975276 635783 [id number] 3 0 .035 260cm J wire (623733) ACIST Hand Acist 1 67012 338684 528365 508849 5 Control (79972) [employer] ACIST Manifold Acist 1 76373 302296 820748 184014 5 (20173) [employer] DIAGNOSTIC Cardinal 1 [id number] 514780 10035 592577 3 0 Multipack 5Fr Health catheter set (OV1333) Tegaderm 4 x 4 3M 1 1626W 586809 779897 198523 5 (1626W) SHEATH Prelude Merit 1 [id number]-[id number] 294281 628775 940522 5 5Fr 0.035 Medical (ZJD-7D-32-035) MICROPUNCTURE Cook Medical 1 [id number] 067305 078761 438714 5 4FR Cook (V65960) MULTIPACK JL Cardinal 1 [id number] 5 4.0 5Fr Health catheter MULTIPACK 3DRC Cardinal 1 141565 5 5Fr catheter Health MULTIPACK Cardinal 1 [id number] 5 Pigtail 5 Fr Health catheter EXOSEAL 5Fr Cardinal 1 EX500 515965 487622 495243 1 0 (EX500) Health Signature Audit [place] [employer] Stage Time Signature Unsigned Intra-Procedure 02/14/2018 Nani Pinto 8:59:15 AM RT(R) Signatures Monitor : Nani Pinto RT Signature : Date : Time : [address] [address]
--- NOTE | ~2018-02-14 | OP ---
PATIENT NAME: ANAMARIA LEVIN MEDICAL RECORD: [id number] :49 LOCATION:D.CAT ADMISSION DATE: SURGEON: JACK NINA MD DATE OF OPERATION: 02/14/2018 PROCEDURE: Left heart catheterization, left ventriculogram, coronary angiogram. DESCRIPTION OF PROCEDURE: The patient was brought to cardiac catheterization lab in stable condition. Both groins were sterilely prepped and draped. The patient had a 5-Kazakh sheath placed into the right common femoral artery using a retrograde approach modified Seldinger technique. The patient then had the left coronary artery, right coronary artery and the left ventricular cavity was selectively engaged and angiography was performed in multiple projections for complete heart catheterization. FINDINGS: 1. Left main has mild calcified distal plaquing. 2. The LAD shown to have 2 patent stents. The intervening portion of the mid LAD has a 40% to 50% stenosis. 3. The circumflex has a dominant distribution with diffuse mild atherosclerotic changes in the 30% to 40% range. 4. The RCA is a nondominant small diffuse atherosclerotic changes. Hemodynamics; left ventricular ejection fraction is 65%. End-diastolic pressure is normal. No significant mitral regurgitation. No gradient across the aortic valve. IMPRESSION: Patent stents in the left anterior descending times 2 with mild non-hemodynamically significant stenoses seen in the intervening segment and in the circumflex with preserved left ventricular systolic function. I would recommend continued medical management antianginal therapy and aggressive secondary risk factor modification with a goal LDL less than 70 mg per deciliter. TRANSINT:[id number] Voice Confirmation ID: [id number] DOCUMENT ID: [id number] JACK NINA MD at 1127 CC: [id number] DICTATION DATE: 02/21/18 0837 BEER RUNNER: 02/21/18 0903 DEP CLI 02/14/18 [place] [id number] [place] [id number]
[2018-02-14 06:56] VITALS: BP 144/78; Ht 182.9 cm; Wt 104.5 kg
[2018-02-14 07:24] LABS: BASOPHILS 0.5 % (0-2); EOSINOPHILS 3.2 % (0-7); HEMATOCRIT 43.6 % (42.0-54.0); HEMOGLOBIN 15.2 g/dL (13.5-17.5); IMMATURE GRANULOCYTES 0.2 % (0-5); LYMPHOCYTES 31.7 % (15-50); MCH 30.5 pg (26.0-34.0); MCHC 34.9 g/dL (31.0-37.0); MCV 87.4 fL (80.0-100.0); MEAN PLATELET VOLUME 10.8 fL (7.4-10.4); MONOCYTES 8.8 % (2-11); NEUTROPHILS 55.6 % (40-80); PLATELET COUNT 185 10x3/uL (130-400); RBC 4.99 10x6/uL (4.20-6.10); RDW 12.7 % (11.5-14.5); WBC 5.7 10x3/uL (4.8-10.8)
[2018-02-14 07:42] LABS: CALC OSMOLALITY 281 mosm/kg (275-300); CALCIUM 8.2 mg/dL (8.5-10.1); CARBON DIOXIDE 23.3 mmol/L (21.0-32.0); CHLORIDE - SERUM 106 mmol/L (98-107); CREATININE - SERUM 0.7 mg/dL (0.6-1.3); GLUCOSE 117 mg/dL (74-106); POTASSIUM - SERUM 4.5 mmol/L (3.5-5.1); SODIUM 139 mmol/L (136-145); UREA NITROGEN 21 mg/dL (7-18); eGFR NON AFRICAN AMERICAN > 90 mL/min (90-120)
== END | disposition home or self-care (01) ==
LOC: D.CATH 06:34
PROVIDERS: Internal Medicine Cardiovascular Disease
DX: I25.10 Atherosclerotic heart disease of native coronary artery without angina pectoris (principal); R94.39 Abnormal result of other cardiovascular function study

== ENCOUNTER → 2019-08-28 07:54 | Outpatient (CLI) | payer MEDICARE, BC ==
[2018-02-14 06:56] VITALS: BMI 31.2
--- NOTE | 2019-08-29 12:54 | ST ---
PATIENT:ANAMARIA LEVIN MEDICAL RECORD: [id number] SEX: M LOCATION:[facility] ORDER #: ADMISSION DATE: 08/28/19 AGE OF PATIENT: 74 REFERRING PHYSICIAN: INTERPRETING PHYSICIAN: CHAO CHILDS MD DATE OF SERVICE: 08/28/2019 INDICATIONS: Angina, coronary artery disease, shortness of breath, hypertension, and hyperlipidemia. He was exercised on standard Lexiscan protocol with 33 mCi of sestamibi injected at peak stress, 11 mCi used previously for rest images. FINDINGS: Gated SPECT reveals preserved ejection fraction at 57% with decreased thickening and brightening throughout the inferior segments. SPECT imaging: Cardiolite was used as myocardial perfusion agent. There is a large perfusion defect inferiorly, apically, and laterally. This is partially fixed, partially reversible, hence a mixed perfusion defect. The remaining segments are with homogeneous uptake at rest and stress. OVERALL IMPRESSION: This is an abnormal nuclear stress test of intermediate risk in this patient with no previous cardiac history showing a mixed perfusion defect inferiorly and laterally suggestive of a previous myocardial infarction with ongoing ischemia suggesting the presence of hemodynamically significant coronary artery disease. TRANSINT:[id number] Voice Confirmation ID: [id number] DOCUMENT ID: [id number] CHAO CHILDS MD at 1254 CC: [employer]AT[employer] [id number] DICTATION DATE: 08/28/19 1516 EXTRA HAND: 08/29/19 0821 [facility] CLI 08/28/19 [place] [id number] [place] [address]
== END | disposition home or self-care (01) ==
LOC: D.HCCARDIO 07:54
PROVIDERS: ATTEND Internal Medicine Interventional Cardiology
DX: I25.10 Atherosclerotic heart disease of native coronary artery without angina pectoris (principal)